=== PATIENT | male | born 1945 | race Caucasian/White ===

== ENCOUNTER 2018-03-01 11:34 | Inpatient (IN) | payer OTHER ==
[~2018-03-01] VITALS: Ht 165.1 cm; Wt 182.8 kg
[2018-03-01] MEDS ORDERED: ASPIRIN 81 MG TABLET CHEW PO ONE (12:00)
--- NOTE | 2018-03-01 12:16 | NUR ---
[facility] FROM [place]. PER EMS RPT PT WITH INITIAL C/O CP A PRESSURE RADIATING DOWN MINERVA LEGS. EMS ATTMEPTED TO GIVE 324ASA BUT RPTS THAT PT DID NOT CHEW THEM AND SPIT THEM OUT. NTG SPRAY X 1 WAS ALSO GIVEN PT RPT NO CHANGE IN PAIN. PT ADMITS TO DRINKING [place] ON DAILY BASIS STATES "1-2 SHOTS A NIGHT" STATES LAST DRINK WAS LAST NIGHT. PT VERBALIZES TO THIS RN "I MIGHT BE WITHDRAWING". PT ON MONITORS AND EKG COMPLETED. DR. CAPUTO AT BEDSIDE, ASSESSMENT REVEIWED AND ORDERS REC'D.
[2018-03-01 12:18] LABS: BASOPHILS # (AUTO) 0.03 x10^3/uL (0-0.1); BASOPHILS % (AUTO) 1 % (0-1); EOSINOPHILS # (AUTO) 0.04 x10^3/uL (0-0.4); EOSINOPHILS % (AUTO) 1 % (1-7); LYMPHOCYTES # (AUTO) 2.27 x10^3/uL (1-3.4); LYMPHOCYTES % (AUTO) 36 % (22-44); MD NO; MEAN CORPUSCULAR HEMOGLOBIN 34.9 pg (27.5-34.5); MEAN CORPUSCULAR HGB CONC 34.2 g/dL (33.2-36.2); MEAN CORPUSCULAR VOLUME 101.8 fL (81-97); MEAN PLATELET VOLUME 8.1 fL (7.4-10.4); MONOCYTES # (AUTO) 0.19 x10^3/uL (0.2-0.8); MONOCYTES % (AUTO) 3 % (2-9); NEUTROPHILS # (AUTO) 3.74 x10^3/uL (1.8-6.8); NEUTROPHILS % (AUTO) 60 % (42-75); PLATELET COUNT 190 x10^3/uL (130-400); RED BLOOD COUNT 4.14 x10^6/uL (4.38-5.82); RED CELL DISTRIBUTION WIDTH 14.5 % (9.4-14.8)
[2018-03-01 12:28] LABS: INTERNATIONAL NORMALIZED RATIO 1.09 (0.93-1.1); PROTHROMBIN TIME 11.5 Seconds (9.6-11.5)
[2018-03-01] MEDS ORDERED: ASPIRIN 81 MG TABLET CHEW ONE (12:28)
[2018-03-01 12:30] LABS: ALANINE AMINOTRANSFERASE 109 U/L (12-78); ALBUMIN 3.9 g/dL (3.4-5.0); ANION GAP 18 mmol/L (5-15); CALCIUM 8.2 mg/dL (8.5-10.1); CHLORIDE 100 mmol/L (98-107); CREATININE 1.33 mg/dL (0.7-1.3)
[2018-03-01] MEDS ORDERED: PLEASE ENTER ALLERGIES MC SCH (12:30)
[2018-03-01 12:34] LABS: ALKALINE PHOSPHATASE 60 U/L (45-117); BILIRUBIN,TOTAL 0.6 mg/dL (0.2-1.0); TOTAL PROTEIN 7.4 g/dL (6.4-8.2); TROPONIN I < 0.015 ng/mL (0.000-0.045)
[2018-03-01] MEDS ORDERED: METO25TA35 PO (13:22)
[2018-03-01] MEDS ORDERED: ATEN100T PO (13:23)
[2018-03-01] MEDS ORDERED: METF500T17 PO ×2 (13:24→13:25)
[2018-03-01] MEDS ORDERED: ALLO300T80 PO (13:24)
[2018-03-01] MEDS ORDERED: SIMV20TA3 PO (13:25)
[2018-03-01] MEDS ORDERED: LORazepam 2 MG/ML, 1ML ONE ×2 (15:16→17:27)
--- NOTE | 2018-03-01 15:22 | NUR ---
PT MEDICATED WITH 1MG IVP ATIVAN FOR ETOH WITHDRAWL SYMPTOMS OF VERY SLIGHT TREMORS AND NAUSEA AND TACHYCARDIA. WILL CONTINUE TO MONITOR.
[2018-03-01] MEDS ORDERED: LORazepam 2 MG/ML, 1ML IVPush ONE (15:30)
[2018-03-01] MEDS ORDERED: LORazepam 2 MG/ML, 1ML IVPush PRN (16:00)
--- NOTE | 2018-03-01 16:25 | NUR ---
ADMITTING PROVIDER, DR. GLASER, AT BEDSIDE.
[2018-03-01] MEDS ORDERED: OXYcodone IR 5MG TABLET PO PRN (16:30)
[2018-03-01] MEDS ORDERED: POLYETHYLENE GLYCOL 17 GM PACKET PO PRN (16:30)
[2018-03-01] MEDS ORDERED: MAGNESIUM SULFATE 1 GM, THIAMINE 100 MG, FOLIC ACID 1 MG, MVI ADULT 10 ML in SODIUM CHL... IV ONE (16:30)
[2018-03-01] MEDS ORDERED: SODIUM CHLORIDE 0.9% 1,000 ML IV SCH (16:30)
[2018-03-01] MEDS ORDERED: LORazepam 2 MG/ML, 1ML IV PRN (16:30)
[2018-03-01] MEDS ORDERED: DOCUSATE 100 MG CAPSULE PO PRN (16:30)
[2018-03-01] MEDS ORDERED: MORPHINE SULFATE 4 MG/ML, 1ML IVPush PRN (16:30)
[2018-03-01] MEDS ORDERED: ONDANSETRON 2MG/ML, 2ML IVPush PRN (16:30)
[2018-03-01] MEDS ORDERED: MAGNESIUM SULFATE PMX 2GM/50ML 50 ML IV ONE (17:00)
[2018-03-01] MEDS ORDERED: ONDANSETRON 2MG/ML, 2ML ONE (17:25)
[2018-03-01] MEDS: LORazepam 2 MG/ML, 1ML IV PRN (17:33)
[2018-03-01 17:34] LABS: HEMOGLOBIN A1C 6.4 % (4.2-6.3)
--- NOTE | 2018-03-01 17:35 | NUR ---
PATIENT MEDICATED WITH ZOFRAN 4MG AND ATIVAN 1 MG FOR NAUSEA AND ETOH WITHDRAWL SYMPTOMS. VS UPDATED. APPLIED OXYGEN VIA NASAL CANULA AT 2LPM FOR ROOM AIR SPO2=89%.
[2018-03-01 19:58] VITALS: BP 133/81
[2018-03-01 20:00] VITALS: BP 133/81
[2018-03-01] MEDS: INSULIN LISPRO 100 UNITS/ML, PEN SQ-INSULIN SCH (21:00)
[2018-03-01] MEDS: METOPROLOL TARTRATE 25 MG TABLET PO SCH (21:45)
[2018-03-01] MEDS: SIMVASTATIN 20 MG TABLET PO SCH (21:45)
[2018-03-01] MEDS: ENOXAPARIN 40 MG/0.4 ML SQ SCH (21:45)
[2018-03-01] MEDS: LORazepam 1MG TABLET PO PRN ×2 (21:45→23:38)
[2018-03-01] MEDS: FAMOTIDINE 20 MG TABLET PO SCH (21:46)
[2018-03-02 02:00] VITALS: BP 159/93
[2018-03-02] MEDS: ACETAMINOPHEN 325 MG TABLET PO PRN (02:35)
[2018-03-02 05:37] LABS: ANION GAP 11 mmol/L (5-15); CHLORIDE 104 mmol/L (98-107); CHOLESTEROL, TOTAL 178 mg/dL (140-239); CREATININE 1.11 mg/dL (0.7-1.3); TRIGLYCERIDES 231 mg/dL (50-200); VLDL CHOLESTEROL 46 mg/dL (0-25)
[2018-03-02 05:41] LABS: CHOL/HDL RATIO 3.8; HDL CHOL % 26 % (26-37); HDL CHOLESTEROL (DIRECT) 47 mg/dL (40-60); LDL CHOLESTEROL,CALCULATED 85 mg/dL (54-169); LDL/HDL RATIO 1.8 (0.5-3.0)
[2018-03-02] MEDS: INSULIN LISPRO 100 UNITS/ML, PEN SQ-INSULIN SCH ×4 (07:00→20:27)
[2018-03-02 07:07] VITALS: BP 167/89
[2018-03-02] MEDS: LORazepam 0.5MG TABLET PO PRN ×3 (08:03→18:02)
[2018-03-02] MEDS: FOLIC ACID 1 MG TABLET PO SCH (08:04)
[2018-03-02] MEDS: ATENOLOL 100 MG TABLET PO SCH (08:04)
[2018-03-02] MEDS: ALLOPURINOL 300 MG TABLET PO SCH (08:04)
[2018-03-02] MEDS: METOPROLOL TARTRATE 25 MG TABLET PO SCH ×3 (08:04→22:20)
[2018-03-02] MEDS: FAMOTIDINE 20 MG TABLET PO SCH ×2 (08:05→20:16)
[2018-03-02] MEDS: THIAMINE 100MG TABLET PO SCH (08:05)
[2018-03-02] MEDS: MULTIVITAMINS/MINERALS TABLET PO SCH (08:05)
[2018-03-02] MEDS: SENNA/DOCUSATE TABLET PO SCH (08:08)
[2018-03-02 12:14] VITALS: BP 174/96
[2018-03-02] MEDS ORDERED: LABETALOL 5MG/ML, 20ML ONE (12:22)
[2018-03-02 12:34] VITALS: BP 163/80
[2018-03-02] MEDS ORDERED: GABA300C10 PO (15:46)
[2018-03-02] MEDS ORDERED: CYCL-259 PO ×2 (15:46→15:52)
[2018-03-02] MEDS ORDERED: GABA300S PO (15:46)
[2018-03-02 20:14] VITALS: BP 157/80
[2018-03-02] MEDS: LORazepam 1MG TABLET PO PRN ×2 (20:16→22:20)
[2018-03-02] MEDS: GABAPENTIN 300 MG CAPSULE PO SCH (20:16)
[2018-03-02] MEDS: SIMVASTATIN 20 MG TABLET PO SCH (20:16)
[2018-03-02] MEDS: ENOXAPARIN 40 MG/0.4 ML SQ SCH (20:17)
[2018-03-02] MEDS: LORazepam 2 MG/ML, 1ML IV PRN ×2 (22:38→23:25)
[2018-03-03] VITALS (7 sets, daily range): BP systolic 137–189; BP diastolic 86–106
[2018-03-03] MEDS: LORazepam 2 MG/ML, 1ML IV PRN ×6 (00:31→14:21)
[2018-03-03] MEDS: INSULIN LISPRO 100 UNITS/ML, PEN SQ-INSULIN SCH ×4 (07:00→21:49)
[2018-03-03] MEDS: SENNA/DOCUSATE TABLET PO SCH (08:25)
[2018-03-03] MEDS ORDERED: CYCLOBENZAPRINE 10 MG TABLET PO PRN (09:00)
[2018-03-03] MEDS: CHLORDIAZEPOXIDE 25 MG CAPSULE PO PRN ×2 (10:54→18:00)
[2018-03-03] MEDS: ATENOLOL 100 MG TABLET PO SCH (10:54)
[2018-03-03] MEDS: FOLIC ACID 1 MG TABLET PO SCH (10:55)
[2018-03-03] MEDS: MULTIVITAMINS/MINERALS TABLET PO SCH (10:55)
[2018-03-03] MEDS: ALLOPURINOL 300 MG TABLET PO SCH (10:55)
[2018-03-03] MEDS: FAMOTIDINE 20 MG TABLET PO SCH ×2 (10:55→21:48)
[2018-03-03] MEDS: THIAMINE 100MG TABLET PO SCH (10:56)
[2018-03-03] MEDS: METOPROLOL TARTRATE 25 MG TABLET PO SCH ×2 (10:56→21:48)
[2018-03-03] MEDS: GABAPENTIN 250 MG/5 ML ORAL SOL PO SCH (10:58)
[2018-03-03] MEDS: HALOPERIDOL 5 MG/ML IM PRN (19:56)
[2018-03-03] MEDS: SIMVASTATIN 20 MG TABLET PO SCH (21:48)
[2018-03-03] MEDS: ENOXAPARIN 40 MG/0.4 ML SQ SCH (21:48)
[2018-03-03] MEDS: GABAPENTIN 300 MG CAPSULE PO SCH (21:48)
[2018-03-03] MEDS: LORazepam 1MG TABLET PO PRN (23:56)
[2018-03-04 00:55] VITALS: BP 158/62
[2018-03-04 01:40] VITALS: BP 153/87
[2018-03-04] MEDS: LORazepam 2 MG/ML, 1ML IV PRN (03:45)
[2018-03-04] MEDS: HALOPERIDOL 5 MG/ML IM PRN (03:49)
[2018-03-04] MEDS ORDERED: LORazepam 1MG TABLET PO PRN ×4 (04:00)
[2018-03-04] MEDS ORDERED: LORazepam 0.5MG TABLET PO PRN (04:00)
[2018-03-04] MEDS ORDERED: LORazepam 2 MG/ML, 1ML IV PRN ×5 (04:00)
[2018-03-04] MEDS: CHLORDIAZEPOXIDE 25 MG CAPSULE PO SCH ×6 (04:11→20:03)
[2018-03-04] MEDS ORDERED: DIAZEPAM 5 MG/ML, 10ML VIAL IV ONE (04:30)
[2018-03-04 05:02] LABS: MICROSCOPIC NOT IND
[2018-03-04] MEDS: INSULIN LISPRO 100 UNITS/ML, PEN SQ-INSULIN SCH ×4 (07:00→20:03)
[2018-03-04 07:29] VITALS: BP 167/92
[2018-03-04] MEDS: MULTIVITAMINS/MINERALS TABLET PO SCH (08:02)
[2018-03-04] MEDS: ALLOPURINOL 300 MG TABLET PO SCH (08:02)
[2018-03-04] MEDS: ATENOLOL 100 MG TABLET PO SCH (08:02)
[2018-03-04] MEDS: FAMOTIDINE 20 MG TABLET PO SCH ×2 (08:02→20:02)
[2018-03-04] MEDS: METOPROLOL TARTRATE 25 MG TABLET PO SCH ×2 (08:03→20:03)
[2018-03-04] MEDS: FOLIC ACID 1 MG TABLET PO SCH (08:03)
[2018-03-04] MEDS: GABAPENTIN 250 MG/5 ML ORAL SOL PO SCH (08:03)
[2018-03-04] MEDS: SENNA/DOCUSATE TABLET PO SCH (08:09)
[2018-03-04] MEDS: THIAMINE 100MG TABLET PO SCH (08:29)
[2018-03-04 13:36] VITALS: BP 151/84
[2018-03-04] MEDS: ACETAMINOPHEN 325 MG TABLET PO PRN (16:43)
[2018-03-04 19:13] VITALS: BP 148/79
[2018-03-04] MEDS: GABAPENTIN 300 MG CAPSULE PO SCH (20:02)
[2018-03-04] MEDS: SIMVASTATIN 20 MG TABLET PO SCH (20:02)
[2018-03-04] MEDS: ENOXAPARIN 40 MG/0.4 ML SQ SCH (20:02)
[2018-03-05 01:15] VITALS: BP 139/72
[2018-03-05 05:18] LABS: CALCIUM 7.6 mg/dL (8.5-10.1); CHLORIDE 102 mmol/L (98-107)
[2018-03-05 05:24] LABS: ALANINE AMINOTRANSFERASE 150 U/L (12-78); ALBUMIN 3.3 g/dL (3.4-5.0); ALKALINE PHOSPHATASE 63 U/L (45-117); ANION GAP 7 mmol/L (5-15); BILIRUBIN,TOTAL 1.4 mg/dL (0.2-1.0); CREATININE 0.65 mg/dL (0.7-1.3); TOTAL PROTEIN 6.2 g/dL (6.4-8.2)
[2018-03-05 06:42] VITALS: BP 156/75
[2018-03-05] MEDS: INSULIN LISPRO 100 UNITS/ML, PEN SQ-INSULIN SCH ×4 (07:00→20:19)
[2018-03-05] MEDS ORDERED: CALCIUM CARBONATE 500 MG TAB.CHEW PO PRN (07:30)
[2018-03-05] MEDS: THIAMINE 100MG TABLET PO SCH (07:56)
[2018-03-05] MEDS: METOPROLOL TARTRATE 25 MG TABLET PO SCH ×2 (07:56→20:17)
[2018-03-05] MEDS: MULTIVITAMINS/MINERALS TABLET PO SCH (07:57)
[2018-03-05] MEDS: ATENOLOL 100 MG TABLET PO SCH (07:57)
[2018-03-05] MEDS: FOLIC ACID 1 MG TABLET PO SCH (07:57)
[2018-03-05] MEDS: CHLORDIAZEPOXIDE 25 MG CAPSULE PO SCH ×3 (07:57→20:17)
[2018-03-05] MEDS: FAMOTIDINE 20 MG TABLET PO SCH ×2 (07:57→20:18)
[2018-03-05] MEDS: ALLOPURINOL 300 MG TABLET PO SCH (07:57)
[2018-03-05] MEDS: GABAPENTIN 250 MG/5 ML ORAL SOL PO SCH (07:58)
[2018-03-05] MEDS: SENNA/DOCUSATE TABLET PO SCH (08:02)
[2018-03-05] MEDS ORDERED: REGADENOSON 0.4 MG/5 ML SYRINGE ONE (10:32)
[2018-03-05 12:49] VITALS: BP 172/95
[2018-03-05 13:50] VITALS: BP 161/88
[2018-03-05 18:33] VITALS: BP 164/92
[2018-03-05] MEDS: GABAPENTIN 300 MG CAPSULE PO SCH (20:18)
[2018-03-05] MEDS: ENOXAPARIN 40 MG/0.4 ML SQ SCH (20:18)
[2018-03-06 02:22] VITALS: BP_SYST 152; BP_SYST 156; BP_DIAS 88
[2018-03-06 04:37] LABS: ALBUMIN 3.4 g/dL (3.4-5.0); ANION GAP 7 mmol/L (5-15); CALCIUM 7.9 mg/dL (8.5-10.1); CHLORIDE 102 mmol/L (98-107)
[2018-03-06 04:40] LABS: ALANINE AMINOTRANSFERASE 191 U/L (12-78); ALKALINE PHOSPHATASE 66 U/L (45-117); BILIRUBIN,TOTAL 0.9 mg/dL (0.2-1.0); CREATININE 0.69 mg/dL (0.7-1.3); TOTAL PROTEIN 6.7 g/dL (6.4-8.2)
[2018-03-06 06:40] VITALS: BP 159/82
[2018-03-06] MEDS: INSULIN LISPRO 100 UNITS/ML, PEN SQ-INSULIN SCH ×2 (07:57→11:22)
[2018-03-06] MEDS: METOPROLOL TARTRATE 25 MG TABLET PO SCH (08:16)
[2018-03-06] MEDS: GABAPENTIN 250 MG/5 ML ORAL SOL PO SCH (08:16)
[2018-03-06] MEDS: ATENOLOL 100 MG TABLET PO SCH (08:16)
[2018-03-06] MEDS: ALLOPURINOL 300 MG TABLET PO SCH (08:16)
[2018-03-06] MEDS: THIAMINE 100MG TABLET PO SCH (08:16)
[2018-03-06] MEDS: SENNA/DOCUSATE TABLET PO SCH (08:16)
[2018-03-06] MEDS: FOLIC ACID 1 MG TABLET PO SCH (08:16)
[2018-03-06] MEDS: MULTIVITAMINS/MINERALS TABLET PO SCH (08:16)
[2018-03-06] MEDS: CHLORDIAZEPOXIDE 25 MG CAPSULE PO SCH (08:17)
[2018-03-06] MEDS: FAMOTIDINE 20 MG TABLET PO SCH (08:17)
[2018-03-06] MEDS ORDERED: AMLODIPINE 5 MG TABLET PO SCH (09:00)
[2018-03-06 13:09] VITALS: BP 148/88
[2018-03-06] MEDS ORDERED: CALC-666 PO (13:45)
[2018-03-06] MEDS ORDERED: MULT-484 PO (13:45)
[2018-03-06] MEDS ORDERED: THIA100T67 PO (13:45)
[2018-03-06] MEDS ORDERED: AMLO-150 PO (13:45)
[2018-03-06] MEDS ORDERED: FOLI-17 PO (13:45)
== END 2018-03-06 15:00 | disposition home or self-care (01) | DRG 682 ==
LOC: ED 14:29 → EDIP 15:55 → SUATTDRO 16:10 → 4WST 20:07 → DCLOUNGE 03-06 14:38
PROVIDERS: ADMIT Family Medicine; ATTEND Family Medicine
DX: N17.0 Acute kidney failure with tubular necrosis (principal); J96.01 Acute respiratory failure with hypoxia; F10.231 Alcohol dependence with withdrawal delirium; F10.239 Alcohol dependence with withdrawal, unspecified; R07.89 Other chest pain; I25.10 Atherosclerotic heart disease of native coronary artery without angina pectoris; I10 Essential (primary) hypertension; E78.5 Hyperlipidemia, unspecified; E11.9 Type 2 diabetes mellitus without complications; M10.9 Gout, unspecified; Z83.3 Family history of diabetes mellitus; Z95.5 Presence of coronary angioplasty implant and graft; I25.2 Old myocardial infarction; Z79.899 Other long term (current) drug therapy; Z88.5 Allergy status to narcotic agent; Z88.8 Allergy status to other drugs, medicaments and biological substances
CPT/HCPCS: 36415; 70450; 71045; 76700; 78452; 80048; 80053; 80061; 80307; 81003; 82140; 82607; 82947; 82962; 83036; 83735; 84100; 84439; 84443; 84484; 85025; 85610; 86704; 86706; 86708; 86803; 87340; 93005; 93017; 96374; 96375; 99285; G0378; J1650; J2405; J2785; J3360; J3411; J3475; 92522-GN; A9502; C9898; J1630; J1815; J2060; J7030